=== PATIENT | male | born 1950 | race Caucasian/White ===

== ENCOUNTER → 2016-08-20 | Outpatient (CLI) | payer BC ==
[~2016-08-20] VITALS: Ht 175.3 cm; Wt 92.7 kg
[~2016-08-20] MED LIST: CELEXA20 MG PO; LIPITOR40 MG PO; LO-DOSE ASPIRIN81 M2 PO
== END | disposition home or self-care (01) ==
LOC: AMB 07:56
DX: Z12.11 Encounter for screening for malignant neoplasm of colon (principal); D12.2 Benign neoplasm of ascending colon; D12.4 Benign neoplasm of descending colon; D12.5 Benign neoplasm of sigmoid colon; D12.3 Benign neoplasm of transverse colon; F41.8 Other specified anxiety disorders; K62.1 Rectal polyp; E78.5 Hyperlipidemia, unspecified; G47.33 Obstructive sleep apnea (adult) (pediatric); R73.03 Prediabetes; E66.3 Overweight; Z68.30 Body mass index [BMI] 30.0-30.9, adult; Z87.891 Personal history of nicotine dependence; Z85.46 Personal history of malignant neoplasm of prostate; Z79.82 Long term (current) use of aspirin; Z82.49 Family history of ischemic heart disease and other diseases of the circulatory system; Z80.0 Family history of malignant neoplasm of digestive organs
CPT/HCPCS: 88305; J2250; J3010